=== PATIENT | male | born 1990 | race Caucasian/White ===

== ENCOUNTER 2019-08-31 17:24 | Emergency (ER) | payer OTHER ==
[~2019-08-31] VITALS: Ht 167.6 cm; Wt 70.3 kg
[~2019-08-31 17:24] MED LIST: MIRALAX POWDER17 G1 PO; NKHM PO
[2019-08-31] MEDS ORDERED: CLINDAMYCIN HC300 MG PO (19:19)
== END 2019-08-31 19:39 | disposition home or self-care (01) ==
LOC: ED 17:24
DX: K04.7 Periapical abscess without sinus (principal); Z88.0 Allergy status to penicillin